=== PATIENT | female | born 1960 | race Caucasian/White ===

== ENCOUNTER 2019-03-20 14:00 | Observation (INO) | payer OTHER ==
[2019-03-20] MEDS ORDERED: ALUMINUM & MAGNESIUM HYDROXIDE 30 ML UD PO ONE (14:15)
[2019-03-20] MEDS ORDERED: ASPIRIN TABLET 325 MG TAB PO ONE (14:15)
[2019-03-20] MEDS ORDERED: POTASSIUM CHLORIDE ELIXIR 20 MEQ/15 ML UD PO ONE (14:43)
--- NOTE | 2019-03-20 14:52 | RAD ---
EXAM DESCRIPTION: Chest,1 View CLINICAL HISTORY: 59 years Female dizzy, sob, htn, lft arm pain COMPARISON: None TECHNIQUE: Portable AP view of the chest is obtained. FINDINGS IN THE CHEST: Heart: Allowing for magnification factors related to AP portable technique and body habitus, the heart is normal in size and configuration. Vasculature: [] There is no evidence of aortic aneurysm or acute findings. The pulmonary vascularity is normal. Mediastinum: Unremarkable otherwise. No evidence of mass or adenopathy. Lungs: There is no focal consolidation in the lungs. Pleura: There are no pleural effusions. There are no pneumothoraces. Osseous structures: No evidence of acute fracture or other significant osseous abnormalities. Tubes and catheters: None Chest wall: Unremarkable. Visualized Abdomen: Unremarkable. IMPRESSION: No acute findings in the chest. Remainder of findings as described above. Electronically signed by: Wendy Barker MD 03/20/2019 2:50 PM CDT
[2019-03-20] MEDS ORDERED: SUCRALFATE 1 GM/10 ML 1 GM UD PO ONE (15:58)
[2019-03-20] MEDS: METOPROLOL TARTRATE 25 MG TAB PO ONE ×2 (16:15→16:25)
--- NOTE | 2019-03-20 18:26 | ED.PDOC ---
History of Present Illness - General Chief Complaint: General Stated Complaint: shaky,lightheaded,numbness to legs and left arm Time Seen by Provider: 03/20/19 14:05 Source: patient Exam Limitations: no limitations - History of Present Illness Initial Comments: The patient's 59-year-old female presents emergency room secondary to acute onset of dizziness and flushing with some very mild chest discomfort. No definite palpitations. Very mild shortness of breath. Upon arrival here to the emergency room blood pressures were in the 230s over 120s. She does not norm ally have any hypotensive issues. She does have a known history of significant hiatal hernia and takes a medication for this. She has also been having some significant recent stress. No history of any cardiac issues or pulmonary emboli. No history of any arrhythmia. The patient is very anxious but cooperative. Timing/Duration: 1/2 hour Severity: moderate Improving Factors: nothing Worsening Factors: nothing Associated Symptoms: chest pain, shortness of breath Allergies/Adverse Reactions: Allergies Erythromycin Allergy (Verified 03/20/19 14:12) Prochlorperazine [From Compazine] Allergy (Verified 03/20/19 14:12) Home Medications: Ambulatory Orders Calcium Carbonate [Caltrate 600] 1,500 mg PO DAILY 03/20/19 Dexlansoprazole [Dexilant] 60 mg PO DAILY 03/20/19 Estrogens, Conjugated [Premarin] 1.25 mg PO DAILY 03/20/19 Eldorado-3 Fatty Acids [Fish Oil] 1 cap PO DAILY 03/20/19 Review of Systems - Review of Systems Constitutional: States: weakness - generalized EENTM: States: no symptoms reported Respiratory: States: short of breath - winifred mild Cardiology: States: chest pain - very mild Gastrointestinal/Abdominal: States: no symptoms reported Genitourinary: States: no symptoms reported Musculoskeletal: States: no symptoms reported Skin: States: no symptoms reported Neurological: States: anxiety Endocrine: States: no symptoms reported All other Systems: No Change from Baseline Past Medical History (General) - Patient Medical History Hx Stroke: No Hx Congestive Heart Failure: No Hx Diabetes: No Surgical History: appendectomy, cholecystectomy, tonsillectomy, Hysterectomy - Vaccination History Hx Influenza Vaccination: Yes Hx Pneumococcal Vaccination: Yes - Social History Hx Tobacco Use: No Family Medical History - Family History Mother Family History: Unknown Living Status: Unknown Physical Exam - Physical Exam General Appearance: Alert, Anxious Eye Exam: bilateral normal Ears, Nose, Throat: hearing grossly normal, normal ENT inspection Neck: full range of motion, supple Respiratory: lungs clear, normal breath sounds, no respiratory distress, no accessory muscle use Cardiovascular/Chest: normal peripheral pulses, regular rate, rhythm, no edema Peripheral Pulses: radial,right: 2+, radial,left: 2+, dorsalis pedis,right: 2+, dorsalis pedis,left: 2+ Gastrointestinal/Abdominal: soft Rectal Exam: deferred Back Exam: no CVA tenderness, no vertebral tenderness Extremity: normal range of motion, non-tender, normal inspection, no pedal edema, normal capillary refill 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, alert, normal mood/affect, oriented x 3 Skin Exam: normal color Comments: Vital Signs - 24 hr 03/20/19 03/20/19 03/20/19 14:09 14:38 15:03 Temperature 97.4 F L Pulse Rate [ 107 H 107 H 84 Left Brachial] Respiratory 24 20 20 Rate Blood Pressure 214/116 188/98 [Left Arm] O2 Sat by Pulse 99 100 Oximetry 03/20/19 03/20/19 03/20/19 16:00 17:03 18:08 Temperature Pulse Rate [ 73 70 72 Left Brachial] Respiratory 20 18 18 Rate Blood Pressure 157/81 151/94 155/88 [Left Arm] O2 Sat by Pulse 99 99 99 Oximetry Progress - Progress Progress: 03/20/19 18:29 the patient is a 59-year-old female presenting to the emergency room secondary to a episode of dizziness, mild shortness of breath and mild chest discomfort with associated significant hypertension. initial set of heart enzymes and repeat at 3 hours are negative. The patient's symptoms have resolved. She did receive 1 dose of aspirin and one dose of metoprolol. Her pressures have improved significantly. Anxiety still been relieved. Source of the symptoms is still not entirely certain. She may have had a mild hypoglycemic episode that triggered the event or she may have had an anxiety attack whether maybe some other source. Given the significance of her symptoms we are going to place her in the hospital for the extended cardiac rule out and to continue monitoring on telemetry monitoring as well as monitoring her blood pressures to make sure they do not spike again. The patient is agreement with this plan. Further blood thinners are being held at this point secondary to hiatal hernia history and the possibility of esophagitis and gastritis given the symptoms. She did receive a dose of Carafate here. - Results/Orders Results/Orders: 03/20/19 14:15 EKG STAT shows sinus tachycardia 105 bpm. Borderline QT interval. Left atrial dilation. Normal axis. Normal R-wave progression. Borderline LVH criteria. No definitive ST segment or T-wave changes indicative of ischemia. Chest x-ray is clear. Laboratory Results - last 24 hr 03/20/19 03/20/19 03/20/19 13:22 13:22 13:22 WBC 10.7 RBC 4.50 Hgb 13.6 Hct 40.1 MCV 89.1 MCH 30.1 MCHC 33.8 RDW 12.6 Plt Count 380 MPV 8.6 Absolute Neuts (auto) 5.90 Absolute Lymphs (auto) 3.80 H Absolute Monos (auto) 0.70 Absolute Eos (auto) 0.10 Absolute Basos (auto) 0.20 H Neutrophils % 54.9 Lymphocytes % 35.8 Monocytes % 6.5 Eosinophils % 1.1 Basophils % 1.7 PT 9.1 INR 0.91 PTT (SP) 22.9 D-Dimer, Quantitative 0.27 Sodium 137 Potassium 3.2 L Chloride 103 Carbon Dioxide 21 Anion Gap 16.2 BUN 20 H Creatinine 0.82 BUN/Creatinine Ratio 24.4 H POC Glucose Random Glucose 167 H Serum Osmolality 280.2 Calcium 9.3 Magnesium 1.7 L Total Bilirubin 0.2 AST 23 ALT 16 Alkaline Phosphatase 62 Creatine Kinase 50 CK-MB (CK-2) 0.8 CK-MB (CK-2) % Not Reportable Troponin I < 0.02 B-Natriuretic Peptide 35.4 Serum Total Protein 7.8 Albumin 3.9 Globulin 3.9 H Albumin/Globulin Ratio 1.0 L Urine Color Urine Appearance Urine pH Ur Specific Atkins Urine Protein Urine Glucose (UA) Urine Ketones Urine Blood Urine Nitrite Urine Bilirubin Urine Urobilinogen Ur Leukocyte Esterase Urine RBC Urine WBC Ur Epithelial Cells Urine Bacteria 03/20/19 03/20/19 03/20/19 14:14 14:50 17:34 WBC RBC Hgb Hct MCV MCH MCHC RDW Plt Count MPV Absolute Neuts (auto) Absolute Lymphs (auto) Absolute Monos (auto) Absolute Eos (auto) Absolute Basos (auto) Neutrophils % Lymphocytes % Monocytes % Eosinophils % Basophils % PT INR PTT (SP) D-Dimer, Quantitative Sodium Potassium Chloride Carbon Dioxide Anion Gap BUN Creatinine BUN/Creatinine Ratio POC Glucose 168 H Random Glucose Serum Osmolality Calcium Magnesium Total Bilirubin AST ALT Alkaline Phosphatase Creatine Kinase 45 CK-MB (CK-2) 0.7 CK-MB (CK-2) % Not Reportable Troponin I < 0.02 B-Natriuretic Peptide Serum Total Protein Albumin Globulin Albumin/Globulin Ratio Urine Color Yellow Urine Appearance Clear Urine pH 5.5 Ur Specific Atkins 1.025 Urine Protein Negative Urine Glucose (UA) Negative Urine Ketones Trace Urine Blood Moderate H Urine Nitrite Negative Urine Bilirubin Negative Urine Urobilinogen 0.2 Ur Leukocyte Esterase Negative Urine RBC 5-10 H Urine WBC 1-3 Ur Epithelial Cells 3-5 Urine Bacteria Rare Departure - Departure Clinical Impression: Hypertensive urgency, Atypical chest pain Disposition: Admit Patient Departure Forms: ED Discharge - Pt. Copy, Patient Portal Self Enrollment Home Medications: Ambulatory Orders Calcium Carbonate [Caltrate 600] 1,500 mg PO DAILY 03/20/19 Dexlansoprazole [Dexilant] 60 mg PO DAILY 03/20/19 Estrogens, Conjugated [Premarin] 1.25 mg PO DAILY 03/20/19 Eldorado-3 Fatty Acids [Fish Oil] 1 cap PO DAILY 03/20/19 Decision To Admit - Decistion To Admit Decision to Admit Reason: Medical Nature Decision to Admit Date: 03/20/19 Decision to Admit Time: 18:31
[2019-03-20] MEDS ORDERED: MORPHINE SULFATE INJ 10 MG/ML VIAL IV PRN (20:56)
[2019-03-20] MEDS ORDERED: ACETAMINOPHEN 325 MG TAB PO PRN (20:56)
[2019-03-20] MEDS ORDERED: NITROGLYCERIN 0.4 MG 25 EA TAB SL PRN (20:56)
[2019-03-20] MEDS ORDERED: SODIUM CHLORIDE 0.9% (FLUSH) 10 ML SYG IV PRN (20:56)
[2019-03-20] MEDS ORDERED: MAGNESIUM SULFATE PREMIX 2GM 2 GM in PREMIX BAG 1 BAG IVPB ONE (21:00)
[2019-03-20] MEDS ORDERED: IV SET AND CAP CHANGE INJ INJ SCH (21:00)
[2019-03-20] MEDS ORDERED: LISINOPRIL 10 MG TAB PO ONE (21:02)
[2019-03-20] MEDS ORDERED: MAGNESIUM SULFATE PREMIX 2GM 50 ML IVPB ONE (21:04)
[2019-03-20] MEDS ORDERED: ALPRAZolam 0.25 MG TAB PO PRN (21:05)
[2019-03-20] MEDS: SODIUM CHLORIDE 0.9% (FLUSH) 10 ML SYG IV SCH (21:08)
[2019-03-21] MEDS ORDERED: PANTOPRAZOLE SODIUM TAB 40 MG PO SCH (06:30)
[2019-03-21] MEDS: SODIUM CHLORIDE 0.9% (FLUSH) 10 ML SYG IV SCH (08:39)
[2019-03-21] MEDS ORDERED: LISINOPRIL 10 MG TAB PO SCH (09:00)
[2019-03-21] MEDS ORDERED: ESTROGENS CONJUGATED 1.25 MG PO SCH (09:00)
[2019-03-21] MEDS ORDERED: ASPIRIN TABLET 325 MG TAB PO SCH (09:00)
[2019-03-21 10:33] VITALS: BP 115/72; TEMP 98.1; O2SAT 99
--- NOTE | 2019-03-31 21:40 | SSS ---
SUPERVISING PHYSICIAN: Cisco Blum M.D. DISCHARGE DIAGNOSES: 1. Chest pain, rule out myocardial infarction. 2. Gastroesophageal reflux disease. 3. Anxiety. HISTORY OF PRESENT ILLNESS: This is a 59 year-old female patient who was at their [place] on the [address]. She actually lives in [place]. She presented to the Emergency Room after she had an acute onset of dizziness and flushing, and she had some mild chest discomfort. She felt like it was midsternal and radiated through to her back. It did not radiate to the left or the right. She did have some shortness of breath. Her blood pressure initially in the Emergency Room showed 214/116. She does not have a history of hypertension. She never had any cardiac or lung history. In the Emergency Room her initial vital signs were temperature 97.4, heart rate 107, blood pressure 214/116, respiratory rate 22, O2 sat 99%. She was given some Lisinopril and some Xanax in the Emergency Room. Blood was drawn. CBC was unremarkable. D-dimer was negative. Potassium was slightly low at 3.2 and magnesium was 1.7, but the remainder of her electrolytes were within normal limits. Initial set of cardiac enzymes was negative. She had a subsequent set of enzymes done 2 hours later and they were also negative. Her blood pressure did come down to 157/81. Chest x-ray showed no acute findings in the chest. I was called for hospital admission. PAST MEDICAL HISTORY: 1. Hiatal hernia. 2. Gastroesophageal reflux disease. PAST SURGICAL HISTORY: 1. Hysterectomy. 2. section. 3. Breast reduction. 4. Cholecystectomy. 5. Appendectomy. CURRENT MEDICATIONS: ALLERGIES: ERYTHROMYCIN, PROCHLORPERAZINE. FAMILY HISTORY: Unknown. SOCIAL HISTORY: She lives in [place]. She is . She denies ETOH or tobacco use. REVIEW OF SYSTEMS: Negative except as per History of Present Illness. PHYSICAL EXAMINATION: VITAL SIGNS: Temperature 98.1, heart rate 70, blood pressure 115/72, respiratory rate 16, O2 sat 99% on room air. GENERAL: This is a 59 year-old female patient who is sitting in her hospital bed. She is awake, alert and oriented. She is in no acute distress. HEENT: Normocephalic and atraumatic. Pupils are equal and reactive. Oropharynx is clear. NECK: Supple without mass. RESPIRATORY: Essentially clear to auscultation bilaterally. CHEST: There is equal rise and fall of the chest with inspiration and expiration. CARDIOVASCULAR: Regular rate and rhythm. GASTROINTESTINAL: Abdomen is soft, nondistended, non-tender. Bowel sounds are positive. EXTREMITIES: No clubbing, cyanosis or edema. NEUROLOGIC: Cranial nerves II-XII are grossly intact. SKIN: Warm and dry. PSYCHIATRIC: She is somewhat anxious but otherwise no other psychological issues. LABORATORY: Followup CBC was unremarkable. Serial cardiac enzymes were all negative. Electrolytes are within normal limits. Triglycerides are 146. HDL 69, LDL 113.9. Urinalysis was basically unremarkable. X-rays are as per the History of Present Illness. HOSPITAL COURSE: The patient was placed in the hospital under the chest pain guidelines. She had no further complaints of chest pain, dizziness or shortness of breath. She was started on lisinopril as well as a baby aspirin. She was given some Xanax for anxiety. She will be discharged home today in stable condition. DISCHARGE PLAN: The patient will be discharged home in stable condition. She is to resume her previous diet and increase her activity as tolerated. She is to followup with her primary care physician, Dr. Marita Osuna, within 1 to 2 weeks. It is recommended that at that time she have a full cardiac workup. In addition to her routine home medications, I have also added some Xanax, aspirin and Lisinopril. She is to return to the hospital or followup with Dr. Osuna for any problems or complications. DISCHARGE MEDICATIONS: 1. Dexilant. 2. Estrogen. 3. Fish oil. 4. Caltrate. 5. Xanax. 6. Aspirin. 7. Lisinopril. #[id number] [facility]
== END 2019-03-21 12:05 | disposition home or self-care (01) ==
LOC: ER 14:00 → MS 18:59
PROVIDERS: ADMIT Nurse Practitioner Acute Care; ATTEND Nurse Practitioner Acute Care
DX: R07.89 Other chest pain (principal); K21.9 Gastro-esophageal reflux disease without esophagitis; F41.9 Anxiety disorder, unspecified; I16.0 Hypertensive urgency; I10 Essential (primary) hypertension; E87.6 Hypokalemia; R42 Dizziness and giddiness; R06.02 Shortness of breath; K44.9 Diaphragmatic hernia without obstruction or gangrene; Z79.82 Long term (current) use of aspirin; Z79.899 Other long term (current) drug therapy; Z88.3 Allergy status to other anti-infective agents; Z88.8 Allergy status to other drugs, medicaments and biological substances; Z90.49 Acquired absence of other specified parts of digestive tract; Z90.710 Acquired absence of both cervix and uterus
CPT/HCPCS: 96365; J3475; 85379; 82553 ×4; 80053 ×2; 82948; 80061; 36415 ×2; 81001; 85025 ×2; 82550 ×4; 83735 ×2; 85730; 85610; 84484 ×4; 83880; 71045; 94760 ×2; 99285; 93005 ×3; G0378